=== PATIENT | female | born 1960 | race Caucasian/White ===

== ENCOUNTER 2020-03-09 08:00 | Outpatient (CLI) | payer OTHER | END 2020-03-09 23:59 | disposition home or self-care (01) | LOC: LAB.WCP 08:00 | PROVIDERS: ATTEND Family Medicine | DX: N39.0 Urinary tract infection, site not specified (principal) | CPT/HCPCS: 87086 ==

== ENCOUNTER 2021-02-09 21:46 | Outpatient (CLI) | payer OTHER | END 2021-02-09 21:47 | disposition short-term general hospital (02) | LOC: EMS 21:46 | DX: R10.9 Unspecified abdominal pain (principal); R41.9 Unspecified symptoms and signs involving cognitive functions and awareness | CPT/HCPCS: A0425; A0429 ==

== ENCOUNTER 2021-09-27 14:58 | Outpatient (CLI) | payer OTHER ==
--- NOTE | 2021-09-28 08:13 | Mammography Report ---
BILATERAL FIRST EVER DIGITAL SCREENING MAMMOGRAM 3D/2D: 09/27/2021 CLINICAL: Baseline exam. Routine screening. No prior exams were available for comparison. There are scattered fibroglandular elements in both br easts. No significant masses, calcifications, or other findings are seen in either breast. IMPRESSION: NEGATIVE There is no mammographic evidence of malignancy. A 1 year screening mammogram is recommended. This exam was interpreted at Station ID: [id number]. NOTE: For mammograms, a report in lay terms will be sent to the patient. Approximately 15% of breast malignancies will not be visualized mammographically. In the management of a palpable breast mass, a negative mammogram must not discourage biopsy of a clinically suspicious lesion. Electronically Signed By: Axel Smith M.D. [email or web address]:09/27/2021 17:02:48 ACR BI-RADS Category 1: Negative 3341F PARENCHYMAL PATTERN: (A) - The breast(s) demonstrate(s) scattered fibroglandular densities. BI-RADS CATEGORY: (1) - 1 RECOMMENDATION: (ANNUAL) - Recommend routine annual screening mammography. [id number] 1 year screening LATERALITY: (B)
== END 2021-09-27 14:59 | disposition home or self-care (01) ==
LOC: DI.N 14:58
DX: Z12.31 Encounter for screening mammogram for malignant neoplasm of breast (principal)

== ENCOUNTER 2021-12-09 01:48 | Outpatient (CLI) | payer OTHER | END 2021-12-09 01:49 | disposition EMS.NT | LOC: EMS 01:48 | DX: F41.9 Anxiety disorder, unspecified (principal) ==

== ENCOUNTER 2022-01-23 08:00 | Outpatient (CLI) | payer OTHER | END 2022-01-23 23:59 | disposition home or self-care (01) | LOC: LAB.R 08:00 | PROVIDERS: ATTEND Family Medicine | DX: N39.0 Urinary tract infection, site not specified (principal) | CPT/HCPCS: 87086; 87181 ==

== ENCOUNTER 2022-04-03 15:15 | Outpatient (CLI) | payer OTHER ==
--- NOTE | 2022-04-03 16:11 | DEXA Report ---
PROCEDURE: Dexa Spine and/or Hip INDICATIONS: POST MENOPAUSAL TECHNIQUE: Dual energy x-ray absorptiometry (DXA) was performed on a [employer] System. Regions measur ed are the AP Spine, femoral neck, and if needed forearm. COMPARISON: None. FINDINGS: Lumbar Spine: Bone Mineral Density 1.189 g/cm/cm,T score 0.1, normal Left Hip: Bone Mineral Density 0.830 g/cm/cm,T score -1.4, osteopenia Left Femoral Neck: Bone Mineral Density 0.783 g/cm/cm, T score -1.8, osteopenia (T score greater or equal to -1.0: NORMAL) (T score from -1.1 to -2.4: OSTEOPENIA) (T score less than or equal to -2.5 to: OSTEOPOROSIS) Impression: Bone mineral density as detailed above. Patients with diagnosis of osteoporosis or osteopenia should have regular bone mineral density assess ment. For those eligible for Medicare, routine testing is allowed once every 2 years. Testing frequ ency can be increased for patients who have rapidly progressing disease or for those who are receivin g medical therapy to restore bone mass. Reviewed by: Farhad Johnson MD on 04/03/2022 4:09 PM PDT Approved by: Farhad Johnson MD on 04/03/2022 4:09 PM PDT Station ID: [id number]
== END 2022-04-03 15:16 | disposition home or self-care (01) ==
LOC: DI 15:15
PROVIDERS: ATTEND Physician Assistant
DX: Z78.0 Asymptomatic menopausal state (principal); M85.89 Other specified disorders of bone density and structure, multiple sites

== ENCOUNTER 2022-04-03 16:12 | Outpatient (CLI) | payer OTHER ==
[2022-04-03 21:35] LABS: BILIRUBIN,URINE NEGATIVE (NEGATIVE); GLUCOSE, URINE (UA) NEGATIVE (NEGATIVE); KETONES,URINE (UA) NEGATIVE (NEGATIVE); LEUKOCYTE ESTERASE, URINE MODERATE (NEGATIVE); NITRITE,URINE NEGATIVE (NEGATIVE); OCCULT BLOOD,URINE NEGATIVE (NEGATIVE); PROTEIN,URINE NEGATIVE (NEGATIVE); UROBILINOGEN,URINE 0.2 (NORMAL) E.U./dL (NORMAL)
[2022-04-03 21:45] LABS: CLARITY,URINE HAZY (CLEAR)
[2022-04-03 21:49] LABS: WBC,URINE >25 /HPF (0-5)
[2022-04-03 21:50] LABS: BACTERIA,URINE Many /HPF (None Seen); RBC,URINE 0-5 /HPF (0-5); SQUAMOUS EPITHELIAL CELL,UR FEW Squamous (<= Few)
== END 2022-04-03 16:13 | disposition home or self-care (01) ==
LOC: LAB.N 16:12 → EDSTATUS 04-11 13:16
PROVIDERS: ATTEND Physician Assistant
DX: R30.0 Dysuria (principal)
CPT/HCPCS: 81001; 87086; 87181